=== PATIENT | female | born 1965 | race African-American/Black ===

== ENCOUNTER 2017-06-25 19:04 | Emergency (ER) | payer MEDICARE, MEDICAID ==
[~2017-06-25] VITALS: Ht 167.6 cm; Wt 64.0 kg
[~2017-06-25 19:04] MED LIST: ARIP2TAB3 PO; DULO60CA44 PO; FLUO1TAB26 PO
[2017-06-25] MEDS ORDERED: HYDR-523 PO (19:12)
[2017-06-25] MEDS ORDERED: KETOROLAC 60MG/2ML VIAL IM ONE (20:00)
[2017-06-25] MEDS ORDERED: HYDROCODONE/ACETAMINOPHEN 5/325MG TABLET PO ONE (20:00)
[2017-06-25 22:02] LABS: HCG SCREEN NEGATIVE
[2017-06-25 22:31] VITALS: BP 119/85
== END 2017-06-25 22:32 | disposition home or self-care (01) ==
LOC: ER 19:04
DX: R07.89 Other chest pain (principal); G89.29 Other chronic pain; M54.9 Dorsalgia, unspecified; M54.2 Cervicalgia; V43.52XA Car driver injured in collision with other type car in traffic accident, initial encounter; Y99.8 Other external cause status; Y93.89 Activity, other specified; Y92.89 Other specified places as the place of occurrence of the external cause; Z98.890 Other specified postprocedural states
CPT/HCPCS: 71010; 72040; 84703; 96372; 99285; J1885; L0172

== ENCOUNTER → 2024-01-14 | Outpatient (CLI) | payer BC ==
[~2024-01-14] MED LIST changes: -DULO60CA44 PO; +DULO60CA45 PO; +HYDR-523 PO
[2024-01-14 12:55] LABS: BASOPHILS % 1.3 % (0.0-2.0); HEMATOCRIT. 33.7 % (36.0-48.0); HEMOGLOBIN. 10.9 g/dL (12.0-16.0); LYMPHOCYTES % 40.7 % (20.0-50.0); MEAN CORPUSCULAR HEMOGLOBIN 27.2 pg (28.0-32.0); MEAN CORPUSCULAR HGB CONC 32.4 g/dL (31.0-37.0); MEAN CORPUSCULAR VOLUME 83.9 fL (81.0-99.0); MEAN PLATELET VOLUME 8.5 fl (7.4-10.4); MONOCYTES % 6.5 % (2.0-8.0); NEUTROPHILS % 37.5 % (40.0-76.0); PLATELET 277 x1000/uL (130-400); RED BLOOD CELL COUNT 4.01 mill/uL (4.2-5.4); RED CELL DISTRIBUTION WIDTH 14.1 % (11.6-14.6); WHITE BLOOD COUNT 5.4 x1000/uL (4.5-11.0)
[2024-01-14 13:02] LABS: CHLORIDE 102 mEq/L (98-107); POTASSIUM 3.9 mEq/L (3.5-5.1); SODIUM 137 mEq/L (136-145)
[2024-01-14 13:03] LABS: CALCIUM 9.1 mg/dL (8.7-10.4); CARBON DIOXIDE 30 mEq/L (21-32)
[2024-01-14 13:07] LABS: URIC ACID 3.7 mg/dL (3.1-7.8)
[2024-01-14 13:08] LABS: CREATININE 0.7 mg/dL (0.6-1.0); GLUCOSE 79 mg/dL (70-105); TRIGLYCERIDE 93 mg/dL (0-150); UREA NITROGEN BLOOD 13 mg/dL (9-23)
[2024-01-14 13:09] LABS: LDL CHOLESTEROL 55 mg/dL (5-100)
[2024-01-14 13:10] LABS: ALANINE AMINOTRANSFERASE 28 IU/L (10-49); ALBUMIN 4.3 g/dL (3.2-4.8); ASPARTATE AMINOTRANSFERASE 35 IU/L (<34); BILIRUBIN TOTAL 0.3 mg/dL (0.1-1.0); CHOLESTEROL 129 mg/dL (<200); HDL CHOLESTEROL 64 mg/dL (>65); PROTEIN TOTAL 6.6 g/dL (6.0-8.3)
[2024-01-14 13:12] LABS: T4 FREE 0.87 ng/dL (0.89-1.76)
[2024-01-14 13:13] LABS: CLARITY URINE CLEAR (CLEAR); COLOR URINE YELLOW (YELLOW); GLUCOSE URINE NEGATIVE (NEGATIVE); KETONES URINE NEGATIVE (NEGATIVE); LEUKOCYTE ESTERASE URINE NEGATIVE (NEGATIVE); NITRITE URINE NEGATIVE (NEGATIVE); OCCULT BLOOD URINE NEGATIVE (NEGATIVE); PH URINE 7.5 (4.5-8.0); PROTEIN URINE NEGATIVE (NEGATIVE); SPECIFIC GRAVITY URINE 1.015 (1.005-1.030); THYROID STIMULATING HORMONE 7.37 uIU/mL (0.55-4.78); UROBILINOGEN URINE 0.2 E.U./dL (0.2-1.0)
[2024-01-14 13:21] LABS: VITAMIN B12 SERUM 773 pg/mL (211-911)
[2024-01-17 09:07] LABS: FOLICLE STIMULATING HORMONE 52.6 mIU/mL (.)
[2024-01-18 04:08] LABS: VITAMIN D 25-OH 30.5 ng/mL (30.0-100.0)
== END | disposition home or self-care (01) ==
LOC: RAD 10:57
PROVIDERS: ATTEND Family Medicine Adult Medicine
DX: R10.2 Pelvic and perineal pain (principal); R35.0 Frequency of micturition; R53.83 Other fatigue; N81.89 Other female genital prolapse; J45.998 Other asthma; F17.200 Nicotine dependence, unspecified, uncomplicated; N94.19 Other specified dyspareunia; H92.03 Otalgia, bilateral
CPT/HCPCS: 36415; 71046; 80053; 80061; 81003; 82306; 82607; 83001; 83036; 84439; 84443; 84550; 85025

== ENCOUNTER → 2024-01-18 | Outpatient (CLI) | payer BC | END | disposition home or self-care (01) | LOC: MAMMO 10:48 | PROVIDERS: ATTEND Family Medicine Adult Medicine | DX: Z12.31 Encounter for screening mammogram for malignant neoplasm of breast (principal) | CPT/HCPCS: 77063; 77067 ==